=== PATIENT | male | born 1960 | race Caucasian/White ===

== ENCOUNTER → 2021-06-30 | Outpatient (CLI) | payer OTHER ==
[~2021-06-30] MED LIST: ACETAMINOPHEN TAB 325 MG TAB PO STA; SODIUM CHLORIDE 0.9% 50 ML IVPB ONE; SODIUM CHLORIDE 0.9% 500 ML 500 ML in EMPTY BAG 1 BAG IV PRN; SOTROVIMAB (EUA) 500 MG in SODIUM CHLORIDE 0.9% 100 ML IVPB ONE
--- NOTE | 2021-06-30 11:29 | ED ---
URI HPI - General Chief Complaint: Upper Respiratory Infection Stated Complaint: Covid +, wants BAM Time Seen by Provider: 06/30/21 10:57 Source: patient, RN notes reviewed Mode of arrival: ambulatory Limitations: no limitations - History of Present Illness Initial Comments: Patient is a 60-year-old male that presents to the emergency department complai nazanin of being Covid positive on monoclonal antibodies. Patient is otherwise well-appearing very mild symptoms. He denied any issues at this time. He denied chest pain shortness of breath headache nausea vomiting diarrhea constipation fatigue chills. - Related Data Allergies Allergy/AdvReac Type Severity Reaction Status Date / Time No Known Allergies Allergy Verified 06/30/21 10:29 Review of Systems ROS Statement: Those systems with pertinent positive or pertinent negative responses have been documented in the HPI. ROS Other: All systems not noted in ROS Statement are negative. Past Medical History Past Medical History: Diabetes Mellitus, Hypertension History of Any Multi-Drug Resistant Organisms: None Reported Past Surgical History: No Surgical Hx Reported Past Psychological History: No Psychological Hx Reported Smoking Status: Never smoker Past Alcohol Use History: None Reported Past Drug Use History: None Reported General Exam Limitations: no limitations General appearance: alert, in no apparent distress, obese Head exam: Present: atraumatic, normocephalic, normal inspection Eye exam: Present: normal appearance, PERRL, EOMI. Absent: scleral icterus, conjunctival injection, periorbital swelling ENT exam: Present: normal exam, mucous membranes moist Neck exam: Present: normal inspection. Absent: tenderness, meningismus, lymphadenopathy Respiratory exam: Present: normal lung sounds bilaterally. Absent: respiratory distress, wheezes, rales, rhonchi, stridor Cardiovascular Exam: Present: regular rate, normal rhythm, normal heart sounds. Absent: systolic murmur, diastolic murmur, rubs, gallop, clicks Extremities exam: Present: normal inspection, full ROM, normal capillary refill. Absent: tenderness, pedal edema, joint swelling, calf tenderness Neurological exam: Present: alert, oriented X3 Psychiatric exam: Present: normal affect, normal mood Skin exam: Present: warm, dry, intact, normal color. Absent: rash Course Vital Signs 06/30/21 10:27 Temperature 99.7 F H Pulse Rate 111 H Respiratory 20 Rate Blood Pressure 150/70 O2 Sat by Pulse 97 Oximetry Medical Decision Making - Medical Decision Making 60-year-old male that presents Covid-positive on monoclonal antibody. Patient does meet criteria for monoclonal antibodies wishes to undergo infusion. Patient will discharge home after infusion. Case discussed with Dr. Paulson, patient can discharge. Disposition Clinical Impression: COVID Disposition: HOME SELF-CARE Condition: Stable Instructions (If sedation given, give patient instructions): Coronavirus Disease 2019 (COVID-19) Additional Instructions: Please return to the Emergency Department if symptoms worsen or any other concerns. Is patient prescribed a controlled substance at d/c from ED?: No Referrals: Tristan Remy MD [Primary Care Provider] - 1-2 days Time of Disposition: 11:29
[2021-06-30 11:54] VITALS: RESP 16
[2021-06-30 12:36] VITALS: TEMP 98.2
[2021-06-30 13:02] VITALS: BP 119/57; PULSE 90
== END ==
LOC: EC 10:17 → PROCWHC3 10:17 → EDSTATUS 11:55
PROVIDERS: ATTEND Physician Assistant Medical
DX: U07.1 COVID-19 (principal); E66.9 Obesity, unspecified; Z68.39 Body mass index [BMI] 39.0-39.9, adult
CPT/HCPCS: 96360; Q0247; M0247